=== PATIENT | male | born 1960 | race Caucasian/White ===

== ENCOUNTER 2020-05-05 06:00 | Emergency (ER) | payer OTHER ==
[~2020-05-05] VITALS: Ht 170.2 cm; Wt 77.1 kg
[~2020-05-05 06:00] MED LIST: TAMS0.4C96 PO
[2020-05-05 06:09] VITALS: BP 133/90
--- NOTE | 2020-05-05 06:09 | NUR ---
TO BED VIA WHEELCHAIR
--- NOTE | 2020-05-05 06:19 | NUR ---
SEE COMPLETE ASSESSMENT.
--- NOTE | 2020-05-05 06:30 | NUR ---
DR BLAIR AT BEDSIDE EXAMINING PT
[2020-05-05] MEDS ORDERED: HYDROcodone/APAP 5/325 MG 1 TAB TAB PO ONE (06:45)
[2020-05-05 07:05] LABS: BASOPHILS % (AUTO) 0.5 % (0.0-2.0); EOSINOPHILS # (AUTO) 0.1 K/uL (0-0.4); EOSINOPHILS % (AUTO) 2.6 % (0.0-4.0); HEMATOCRIT 41.8 % (36-52); LYMPHOCYTES % (AUTO) 20.6 % (20.5-51.1); MEAN CORPUSCULAR HEMOGLOBIN 31 pg (27-31); MEAN CORPUSCULAR HGB CONC 33 g/dL (33-37); MEAN CORPUSCULAR VOLUME 92.1 fL (80-94); MONOCYTES # (AUTO) 0.3 K/uL (0.8-1.0); MONOCYTES % (AUTO) 6.8 % (1.7-9.3); NEUTROPHILS # (AUTO) 3.3 K/uL (1.8-7.7); NEUTROPHILS % (AUTO) 69.5 % (42.2-75.2); PLATELET COUNT (AUTO) 188 K/uL (140-450); RED BLOOD CELL COUNT(AUTO) 4.54 MIL/uL (4.20-6.10); RED CELL DISTRIBUTION WIDTH 13.4 % (11.6-13.7); WHITE BLOOD COUNT (AUTO) 4.8 K/uL (4.8-10.8)
--- NOTE | 2020-05-05 07:15 | NUR ---
ASSUMED CARE OF PT AT THIS TIME. NO REPORT GIVEN.
[2020-05-05 07:27] LABS: ALBUMIN 3.9 g/dL (3.4-5.0); ANION GAP 9.7 (8-16); CARBON DIOXIDE 29.6 mmol/L (21-32); CREATININE 1.2 mg/dL (0.6-1.3); POTASSIUM 5.3 mmol/L (3.5-5.1); TOTAL BILIRUBIN 0.4 mg/dL (0.0-1.0)
--- NOTE | 2020-05-05 07:35 | NUR ---
[employer] SAL[employer] MANAGER TOOK PT TO XRAY VIA W/C
--- NOTE | 2020-05-05 08:30 | NUR ---
pt resting in bed. bed in lowest position, brakes locked with x1 siderail up. even and unlabored respirations noted.
[2020-05-05 09:56] VITALS: BP 122/81
--- NOTE | 2020-05-05 09:58 | NUR ---
Patient discharged with v/s stable. Written and verbal after care instructions given and explained. Patient alert, oriented and verbalized understanding of instructions. Ambulatory with steady gait. All questions addressed prior to discharge. ID band removed. Patient advised to follow up with PMD. Rx of naproxen 500mg tab PO BID, medrol dosepak 4mg tab PO, and norco 5mg-325mg tab q6 hrs PO given. Patient educated on indication of medication including possible reaction and side effects. Opportunity to ask questions provided and answered.
== END 2020-05-05 09:58 | disposition home or self-care (01) ==
LOC: MED 06:00
DX: M79.604 Pain in right leg (principal); M79.605 Pain in left leg; I10 Essential (primary) hypertension; Z79.899 Other long term (current) drug therapy
CPT/HCPCS: 36415; 72100; 72220; 80053; 85025; 99284